=== PATIENT | male | born 1950 | race Hispanic/Latino ===

== ENCOUNTER 2016-09-15 18:06 | Emergency (ER) | payer OTHER ==
[~2016-09-15] VITALS: Ht 167.6 cm; Wt 90.7 kg
[~2016-09-15 18:06] MED LIST: CLONAZEPAM1 MG PO; OMEPRAZOLE40 MG PO; REGLAN10 MG PO; TRAZODONE100 MG PO; VENLAFAXINE HYD75 MG PO
--- NOTE | 2016-09-15 19:00 | ED GI/GU/ABDOMINAL COMPLAINT ---
History of Present Illness General Chief Complaint: Male Genitourinary Problems Stated Complaint: CONSTIPATION; URINARY RETENTION Source: patient, old records Exam Limitations: no limitations Vital Signs & Intake/Output Vital Signs & Intake/Output Vital Signs Date Time Temp Pulse Resp B/P Pulse O2 O2 Flow FiO2 Ox Delivery Rate 09/15 2244 98.2 80 16 148/80 98 Room Air 09/15 2028 97.9 73 20 159/77 97 Room Air 09/15 1828 96.2 71 16 156/86 97 Room Air Allergies Coded Allergies: No Known Allergies (09/15/16) Reconcile Medications Clonazepam (Unknown Strength) TABLET (Unknown Dose) PO DAILY ANXIETY ( Reported) METOCLOPRAMIDE HCL (Reglan) 10 MG TABLET 1 TAB PO BID nausea/refulx 30 minutes before meals and bedtime Omeprazole 40 MG CAPSULE.DR 1 CAP PO DAILY STOMACH (Reported) TRAZODONE HCL (Trazodone HCl) 100 MG TABLET 1 TAB PO QPM SLEEP (Reported) VENLAFAXINE HCL (Venlafaxine Hydrochloride) (Unknown Strength) TABLET (Unknown Dose) PO DAILY DEPRESSION (Reported) Triage Note: PT STATES HE IS CONSTIPATED AND NOW HE CAN'T URINATE. PT STATSE THIS HAS BEEN GOING ON FOR 3 DAYS. PT STATES HE GAVE HIMSELF A FLEET ENEMA TODAY BUT IT DIDN'T WORK. PT REPORTS HAVING ABD PAIN AND PRESSURE IN HIS BLADDER. Triage Nurses Notes Reviewed? yes HPI: Patient is a 66-year-old male presents complaining of constipation and inability to urinate. Patient reports he has not had a bowel movement for the past 4-5 days. Patient has tried Fleet enemas with no improvement. Patient also has not urinated for the past 4-5 hours. Patient feels pressure in the suprapubic area. Symptoms are currently moderate. Patient denies fevers, chills, nausea, vomiting. (FRANCINE NAVARRO) Past History Travel History Traveled to [place] past 21 day No Medical History Any Pertinent Medical History? see below for history Cardiovascular: hypertension, hyperlipidemia Psychiatric: depression Surgical History Surgical History: non-contributory Psychosocial History What is your primary language Danish Tobacco Use: Never used ETOH Use: denies use Illicit Drug Use: denies illicit drug use Family History Hx Contributory? No (FRANCINE NAVARRO) Review of Systems Review of Systems Constitutional: Denies: chills, fever. EENTM: Reports: no symptoms. Respiratory: Denies: cough, short of breath. Cardiovascular: Denies: chest pain. GI: Reports: see HPI. Genitourinary: Reports: see HPI. Musculoskeletal: Reports: no symptoms. Skin: Reports: no symptoms. Neurological/Psychological: Denies: headache, numbness. Hematologic/Endocrine: Reports: no symptoms. Immunologic/Allergic: Reports: no symptoms. (FRANCINE NAVARRO) Physical Exam Physical Exam General Appearance: well developed/nourished, alert, awake Head: atraumatic, normal appearance Eyes: Bilateral: normal appearance, PERRL, EOMI. Ears, Nose, Throat, Mouth: hearing grossly normal, moist mucous membrane Neck: normal inspection, supple, full range of motion Respiratory: normal breath sounds, chest non-tender, no respiratory distress, lungs clear Cardiovascular: regular rate/rhythm Gastrointestinal: normal bowel sounds, soft, MILD SUPRAPUBIC TENDERNESS Rectal: brown stool, hard stool present in the rectal vault. Back: normal inspection, normal range of motion Extremities: normal range of motion Neurologic/Psych: no motor/sensory deficits, awake, alert, oriented x 3, normal gait, normal mood/affect Skin: intact, normal color, warm/dry Core Measures ACS in differential dx? No Severe Sepsis Present: No Septic Shock Present: No (FRANCINE NAVARRO) Progress Differential Diagnosis: constipation, small bowel obstruction, urinary retention Plan of Care: Orders Procedure Date/time Status Enema 09/15 2020 Active Araujo, Insertion/Removal/Asses 09/15 1938 Complete CULTURE,URINE 09/15 1938 Active URINALYSIS 09/15 1938 Complete Laboratory Tests 09/15/161999: Urine Color YEL, Urine Clarity CLEAR, Urine pH 6.0, Ur Specific [place] >= 1.030 , Urine Protein NEG, Urine Ketones NEG, Urine Nitrite NEG, Urine Bilirubin NEG, Urine Urobilinogen 0.2, Ur Leukocyte Esterase NEG, Ur Microscopic EXAM NOT REQUIRED, Urine Hemoglobin NEG, Urine Glucose NEG Microbiology 09/15 1999 URINE ROUT: Urine Culture - RECD 09/15/2016 8:21:32 PM: Patient was able to urinate approximately 100 mL in the emergency department. Post void residual less than 80 mL by bladder scan. Araujo catheter deferred. 09/15/2016 10:31:40 PM: Patient had multiple bowel movements after soapsuds enema. Patient reports abdominal discomfort has resolved. Patient appears stable for discharge. (FRANCINE NAVARRO) Initial ED EKG: none (FRNACINE NAVARRO) Departure Departure Time of Disposition: 2230 Disposition: HOME OR SELF CARE Condition: Stable Clinical Impression Primary Impression: Constipation Qualifiers: Constipation type: unspecified constipation type Qualified Code: K59.00 - Constipation, unspecified Referrals: UNKNOWN (PCP/Family) Additional Instructions: Increase your fluid and fiber intake. Take Colace (stool softener) as directed. Follow-up with your doctor at the [facility]. return to the emergency department if fevers, abdominal pain increasing, inability to urinate, or worsening of symptoms. Departure Forms: Customer Survey General Discharge Information (FRANCINE NAVARRO) PA/WEB INTERFACE DEVELOPER Co-Sign Statement Statement: ED Attending supervision documentation- x I saw and evaluated the patient. I have also reviewed all the pertinent lab results and diagnostic results. I agree with the findings and the plan of care as documented in the PA's/WEB INTERFACE DEVELOPER's documentation. [] I have reviewed the ED Record and agree with the PA's/WEB INTERFACE DEVELOPER's documentation. [] Additions or exceptions (if any) to the PAs/WEB INTERFACE DEVELOPER's note and plan are summarized below: [] (TU MARRUFO,ROSETTE)
--- NOTE | 2016-09-15 20:42 | RADIOLOGY REPORT ---
EXAMINATION: XR ABDOMEN MULTIPLE VIEWS CLINICAL INDICATION: Constipation. Lower abdominal pain. Unable to urinate. COMPARISON: None TECHNIQUE: Upright supine abdomen FINDINGS: There are multiple calcified phleboliths in the lower pelvis. No radiopaque urinary calculi. There is moderate to large-volume of stool seen from cecum through the pelvis. No dilated bowel loop. Nonobstructive bowel pattern. IMPRESSION: Moderate to large-volume of stool in colon. Nonobstructive bowel pattern.
[2016-09-15 22:44] VITALS: BP 148/80
== END 2016-09-15 22:47 ==
LOC: ERH 18:06
DX: K59.00 Constipation, unspecified (principal)
CPT/HCPCS: 74020; 81003; 87086

== ENCOUNTER 2016-12-19 01:33 | Emergency (ER) | payer OTHER ==
[~2016-12-19] VITALS: Ht 167.6 cm; Wt 91.2 kg
--- NOTE | 2016-12-19 01:53 | ED GI/GU/ABDOMINAL COMPLAINT ---
History of Present Illness General Chief Complaint: General Adult Stated Complaint: "PER PT N+V+D, HEARTBURN" Source: patient Exam Limitations: no limitations Vital Signs & Intake/Output Vital Signs & Intake/Output Vital Signs Date Time Temp Pulse Resp B/P B/P Pulse O2 O2 Flow FiO2 Mean Ox Delivery Rate 12/19 0426 96.4 89 18 116/77 95 Room Air 12/19 0153 Room Air Room Air 12/19 0148 96.2 101 20 124/83 95 Room Air Allergies Coded Allergies: No Known Allergies (12/19/16) Reconcile Medications Clonazepam (Unknown Strength) TABLET (Unknown Dose) PO DAILY ANXIETY ( Reported) Diphenoxylate HCl/Atropine (Lomotil 2.5-0.025 MG Tablet) 2.5 MG-0.025 MG TABLET 1 TAB PO 4 TIMES/DAY diarrhea METOCLOPRAMIDE HCL (Reglan) 10 MG TABLET 1 TAB PO BID nausea/refulx 30 minutes before meals and bedtime Omeprazole 40 MG CAPSULE.DR 1 CAP PO DAILY STOMACH (Reported) Ondansetron (Zofran Odt) 4 MG TAB.RAPDIS 1 TAB SL TID PRN nausea Pantoprazole Sodium (Protonix) 40 MG TABLET.DR 1 TAB PO DAILY gastritis TRAZODONE HCL (Trazodone HCl) 100 MG TABLET 1 TAB PO QPM SLEEP (Reported) VENLAFAXINE HCL (Venlafaxine Hydrochloride) (Unknown Strength) TABLET (Unknown Dose) PO DAILY DEPRESSION (Reported) Triage Note: TRIAGE: PT TO ER C/C "I'VE BEEN HAVING STOMACH PROBLEMS FOR THE LONGEST. BLOATING, ACID, GAS. FOR ABOUT 3 DAYS I'VE BEEN HAVING HEARTBURN AND TODAY I STARTED HAVING DIARRHEA AND VOMITING." DENIES ANY PAIN AT PRESENT. ATE RICE AND BEANS PRIOR TO ONSET OF VOMITING. Triage Nurses Notes Reviewed? yes Onset: Gradual Duration: hour(s): Timing: single episode today Quality/Severity: burning, cramping Location: epigastric Radiation: no radiation Activities at Onset: none Prior Abdominal Problems: similar symptoms Modifying Factors: Improves With: rest. Associated Symptoms: abdominal pain HPI: 66-year-old gentleman history of hypertension and hyperlipidemia presents with three-day history of intermittent mid epigastric pain and tenderness associated with a burning sensation. He notes that tonight he started vomiting and came to the emergency department for further evaluation. He notes that he also had loose stool for the past day. He has no fever chills abdominal pain chest pain or shortness of breath. He does not recall any possible etiology for his symptoms. He is otherwise well. Past History Travel History Traveled to [place] past 21 day No Medical History Any Pertinent Medical History? see below for history Neurological: NONE EENT: NONE Cardiovascular: hypertension, hyperlipidemia Respiratory: NONE Gastrointestinal: NONE Hepatic: NONE Renal: NONE Musculoskeletal: disk herniation Psychiatric: depression Endocrine: NONE Blood Disorders: NONE Cancer(s): NONE SOFTWARE QA SYSTEM SPECIALIST/Reproductive: NONE Surgical History Surgical History: non-contributory Psychosocial History What is your primary language Yakut Tobacco Use: Quit >30 days ago ETOH Use: denies use Illicit Drug Use: denies illicit drug use Family History Hx Contributory? No Review of Systems Review of Systems Constitutional: Reports: no symptoms. EENTM: Reports: no symptoms. Respiratory: Reports: no symptoms. Cardiovascular: Reports: no symptoms. GI: Reports: no symptoms. Genitourinary: Reports: no symptoms. Musculoskeletal: Reports: no symptoms. Skin: Reports: no symptoms. Neurological/Psychological: Reports: no symptoms. Hematologic/Endocrine: Reports: no symptoms. Immunologic/Allergic: Reports: no symptoms. All Other Systems: Reviewed and Negative Physical Exam Physical Exam General Appearance: well developed/nourished, mild distress Head: atraumatic, normal appearance Eyes: Bilateral: normal appearance. Ears, Nose, Throat, Mouth: hearing grossly normal Neck: normal inspection, supple, full range of motion, normal alignment Respiratory: normal breath sounds, chest non-tender, no respiratory distress, quiet respiration, lungs clear Cardiovascular: regular rate/rhythm Gastrointestinal: normal bowel sounds, soft, non-tender, no organomegaly Back: normal inspection Extremities: normal range of motion Neurologic/Psych: no motor/sensory deficits, awake, alert, oriented x 3 Skin: intact, normal color, warm/dry Core Measures ACS in differential dx? No Severe Sepsis Present: No Septic Shock Present: No Progress Differential Diagnosis: gastroenteritis, vs ulcer, vs gastritis vs other. Plan of Care: Orders Procedure Date/time Status TROPONIN LEVEL 12/19 152 Complete LIPASE 12/19 152 Complete HEPATIC FUNCTION PANEL 12/19 152 Complete CBC WITHOUT DIFFERENTIAL 12/19 152 Complete BASIC METABOLIC PANEL 12/19 152 Complete AMYLASE 12/19 152 Complete EKG 12/19 152 Active Laboratory Tests 12/19/16 0236: Anion Gap 14, Estimated GFR > 60, BUN/Creatinine Ratio 19.0, Glucose 126 H, Calcium 10.1, Total Bilirubin 0.5, Direct Bilirubin 0.2, AST 22, ALT 43, Alkaline Phosphatase 71, Troponin I < 0.01, Total Protein 7.3, Albumin 4.5, Amylase 66, Lipase 49, CBC w Diff NO MAN DIFF REQ, RBC 4.70, MCV 94.3 H, MCH 32.3 H, RDW 13.3, MPV 8.5, Gran % 78.6 H, Lymphocytes % 14.3 L, Monocytes % 6.1, Eosinophils % 0.9, Basophils % 0.1, Absolute Granulocytes 9.5 H, Absolute Lymphocytes 1.7, Absolute Monocytes 0.7 H, Absolute Eosinophils 0.1, Absolute Basophils 0, PUBS MCHC 34.2 Initial ED EKG: normal axis, normal intervals, normal p-waves, normal QRS complex, normal sinus rhythm Departure Departure Disposition: HOME OR SELF CARE Condition: Stable Clinical Impression Primary Impression: Abdominal pain Referrals: UNKNOWN (PCP/Family) Departure Forms: Customer Survey General Discharge Information Prescriptions: Current Visit Scripts Ondansetron (Zofran Odt) 1 TAB SL TID PRN nausea #10 TAB Pantoprazole Sodium (Protonix) 1 TAB PO DAILY #30 TAB Diphenoxylate HCl/Atropine (Lomotil 2.5-0.025 MG Tablet) 1 TAB PO 4 TIMES/DAY #10 TAB Comments 12/19/16, 4:20am.... pt well appearing after supportive medications.... labs benign. Upon repeat exam, his abdomen is non tender, normal. Pt wishes to go home. He is safe for discharge. Close follow up advised.
[2016-12-19 02:50] LABS: ABSOLUTE BASOPHIL COUNT 0 /CUMM (0.0-0.2); ABSOLUTE EOSINOPHIL COUNT 0.1 /CUMM (0.0-0.7); ABSOLUTE GRANULOCYTE CT 9.5 /CUMM (1.4-6.5); ABSOLUTE LYMPH COUNT 1.7 /CUMM (1.2-3.4); ABSOLUTE MONOCYTE COUNT 0.7 /CUMM (0.10-0.60); BASOPHIL % 0.1 % (0.0-2.0); EOSINOPHIL % 0.9 % (0-5); GRANULOCYTE % 78.6 % (42.2-75.2); HEMATOCRIT 44.3 % (42-52); MEAN CORPUSCULAR HGB 32.3 PG (27.0-31.0); MEAN CORPUSCULAR HGB CONC 34.2 G/DL (33.0-37.0); MEAN CORPUSCULAR VOLUME 94.3 FL (80.0-94.0); MEAN PLATELET VOLUME 8.5 FL (7.4-10.4); PLATELET COUNT 229 /CUMM (130-400); RBC DISTRIBUTION WIDTH 13.3 % (11.5-14.5); WHITE BLOOD CELL COUNT 12.1 /CUMM (4.8-10.8)
[2016-12-19] MEDS ORDERED: PROTONIX40 M3 PO (03:03)
[2016-12-19] MEDS ORDERED: ZOFRAN ODT4 M1 SL (03:03)
[2016-12-19] MEDS ORDERED: LOMOTIL 2.5-0.1 EACH PO (03:55)
[2016-12-19 04:26] VITALS: BP 116/77
== END 2016-12-19 04:28 ==
LOC: ERH 01:33
PROVIDERS: Pediatrics
DX: R10.13 Epigastric pain (principal)
CPT/HCPCS: 93005; 93010; 96361; 96374; 96375; J2405